=== PATIENT | female | born 1950 | race Caucasian/White ===

== ENCOUNTER → 2023-08-24 | Outpatient (CLI) | payer OTHER, MEDICARE ==
[2023-08-24] MEDS: SODIUM CHLORIDE 0.9% 500 ML 500 ML in EMPTY BAG 1 BAG IV PRN (10:08)
[2023-08-24] MEDS: ZOLEDRONIC ACID 5 MG in SODIUM CHLORIDE 0.9% 100 ML IV NR (10:13)
[2023-08-24 10:30] VITALS: BP 134/84; PULSE 99; RESP 18; TEMP 98.1
== END ==
LOC: PROCWHC3 09:49
PROVIDERS: ATTEND Internal Medicine
DX: M81.0 Age-related osteoporosis without current pathological fracture (principal)
CPT/HCPCS: 96365; J3489

== ENCOUNTER → 2024-06-20 | Outpatient (CLI) | payer OTHER, MEDICARE ==
[~2024-06-20] MED LIST: SODIUM CHLORIDE 0.9% 250 ML in EMPTY BAG 1 BAG IV PRN
[2024-06-20 14:13] VITALS: BP 153/89; PULSE 90; RESP 16; TEMP 98.2
[2024-06-20] MEDS: ZOLEDRONIC ACID 5 MG in SODIUM CHLORIDE 0.9% 100 ML IV NR (14:14)
[2024-06-20] MEDS: SODIUM CHLORIDE 0.9% 500 ML 500 ML in EMPTY BAG 1 BAG IV PRN (14:15)
== END ==
LOC: PROCWHC3 13:51
PROVIDERS: ATTEND Internal Medicine
DX: M81.0 Age-related osteoporosis without current pathological fracture (principal)
CPT/HCPCS: 96365; J3489